=== PATIENT | female | born 1990 | race Caucasian/White ===

== ENCOUNTER 2018-01-31 20:41 | Emergency (ER) | payer BC ==
[~2018-01-31] VITALS: Ht 162.6 cm; Wt 136.0 kg
[2018-01-31 21:45] VITALS: BP 148/83
[2018-01-31] MEDS ORDERED: HYDROcodone/APAP 7.5/325MG 1 TAB TABLET PO ONE (22:00)
[2018-01-31] MEDS ORDERED: KETOROLAC 60 MG/2 ML VIAL. IM ONE (22:00)
[2018-01-31] MEDS ORDERED: ORPHENADRINE CITRATE 60 MG/2 ML VIAL. IM ONE (22:00)
[2018-01-31] MEDS ORDERED: CYCL-331 PO (22:43)
--- NOTE | 2018-01-31 22:43 | PHYS DOC ---
Adult General Chief Complaint Chief Complaint: BACK PAIN OR INJURY HPI HPI 27-year-old female with a history of morbid obesity at 300 pounds now presents to the emergency department complaining of low back pain bilateral low back. No known injury. Patient has been more physically active than usual recently. She has normal bowel bladder habits and denies spinal pain. Review of Systems Review of Systems Constitutional: Denies fever or chills [] Eyes: Denies change in visual acuity, redness, or eye pain [] HENT: Denies nasal congestion or sore throat [] Respiratory: Denies cough or shortness of breath [] Cardiovascular: No additional information not addressed in HPI [] GI: Denies abdominal pain, nausea, vomiting, bloody stools or diarrhea [] : Denies dysuria or hematuria [] Musculoskeletal: Denies back pain or joint pain [] Integument: Denies rash or skin lesions [] Neurologic: Denies headache, focal weakness or sensory changes [] Endocrine: Denies polyuria or polydipsia [] All other systems were reviewed and found to be within normal limits, except as documented in this note. Current Medications Current Medications Current Medications Medications (Trade) Dose Ordered Sig/[facility] Start Time Stop Time Status Last Admin Dose Admin Acetaminophen/ Hydrocodone Bitart (Lortab 7.5/325) 1 tab 1X ONCE 01/31/18 22:00 01/31/18 22:01 DC 01/31/18 22:03 1 TAB Ketorolac Tromethamine (Toradol) 60 mg 1X ONCE 01/31/18 22:00 01/31/18 22:01 DC 01/31/18 22:04 60 MG Orphenadrine Citrate (Norflex) 60 mg 1X ONCE 01/31/18 22:00 01/31/18 22:01 DC 01/31/18 22:04 60 MG Allergies Allergies Allergies Coded Allergies Type Severity Reaction Last Updated Verified Penicillins Allergy Unknown 01/31/18 Yes Sulfa (Sulfonamide Antibiotics) Allergy Unknown 01/31/18 Yes amoxicillin Allergy Unknown 01/31/18 Yes Physical Exam Physical Exam Appearing patient no acute distress benign exam except bilateral lumbar soft tissue tenderness with no midline or bony tenderness. No step-off. No skin changes. Normal extremities which are neurologically intact bilaterally. No saddle anesthesia negative straight leg raise with normal symmetrical strength sensation and reflexes. Constitutional: Well developed, well nourished, no acute distress, non-toxic appearance. [] HENT: Normocephalic, atraumatic, bilateral external ears normal, oropharynx moist, no oral exudates, nose normal. [] Eyes: EOMI, conjunctiva normal, no discharge. [] Neck: Normal range of motion, no tenderness, supple, no stridor. [] Cardiovascular: No tachycardia Lungs & Thorax: Normal respiratory rate with no asymmetry of the chest wall excursion and no increased work of breathing Abdomen: Nondistended abdomen Skin: Warm, dry, no erythema, no rash. [] Back: Normal supple appearing neck Extremities: no cyanosis, no clubbing, ROM intact, no edema. [] Neurologic: Alert and oriented X 3, normal motor function, normal sensory function, no focal deficits noted. [] Psychologic: Affect normal, judgement normal, mood normal. [] Current Patient Data Lab Results Laboratory Tests Test 01/31/18 20:21 POC Urine HCG, Qualitative hcg negative (Negative) EKG EKG [] Radiology/Procedures Radiology/Procedures [] Course & Med Decision Making Course & Med Decision Making Pertinent Labs and Imaging studies reviewed. (See chart for details) Signs and symptoms consistent with lumbar strain and muscle spasm. Neurovascularly intact bilateral lower extremities. NSAIDs administered as well as muscle relaxants. Patient were to take ibuprofen and Flexeril as needed and she will avoid strenuous activity do warm soaks and gentle stretches follow-up with her primary care doctor in 1-2 days. Patient agrees that outpatient follow- up and strict return precautions given [] Dragon Disclaimer Dragon Disclaimer This electronic medical record was generated, in whole or in part, using a voice recognition dictation system. Departure Departure: Impression: Primary Impression: Low back pain Additional Impressions: Acute myofascial strain of lumbar region Spasm of muscle of lower back Disposition: 01 HOME, SELF-CARE Condition: IMPROVED Referrals: PCP,NO (PCP) Patient Instructions: Low Back Strain with [facility] Additional Instructions: It appears that you're suffering from lumbar strain which means strain of the low back muscles. Take ibuprofen 800 mg every 6 hours as needed for pain. Apply an ice pack as much as possible as needed over the next day. Use Flexeril as needed for muscle spasm. Avoid strenuous activity until your symptoms have resolved. Follow-up with your doctor in 1-2 days for reevaluation and further treatment as needed. Scripts Cyclobenzaprine Hcl (CYCLOBENZAPRINE HCL) 10 Mg Tablet 1 TAB PO TID, #15 TAB Prov: ROSALINA AMADOR MD 01/31/18 Problem Qualifiers ROSALINA AMADOR MD Jan 31, 2018 22:43
== END 2018-01-31 22:48 | disposition home or self-care (01) ==
LOC: ER 20:41
DX: S39.012A Strain of muscle, fascia and tendon of lower back, initial encounter (principal); E66.01 Morbid (severe) obesity due to excess calories; Z88.0 Allergy status to penicillin; Z88.2 Allergy status to sulfonamides; Z88.1 Allergy status to other antibiotic agents; Z68.43 Body mass index [BMI] 50.0-59.9, adult; X58.XXXA Exposure to other specified factors, initial encounter; Y93.89 Activity, other specified; Y99.8 Other external cause status; Y92.89 Other specified places as the place of occurrence of the external cause
CPT/HCPCS: 81025; 96372; 99284; J1885; J2360